=== PATIENT | female | born 1960 | race Caucasian/White ===

== ENCOUNTER 2017-05-20 09:53 | Outpatient (CLI) | payer OTHER | END 2017-05-20 09:54 | disposition home or self-care (01) | LOC: LABBT 09:53 | PROVIDERS: ATTEND Neurological Surgery | DX: Z01.818 Encounter for other preprocedural examination (principal); I67.1 Cerebral aneurysm, nonruptured ==

== ENCOUNTER 2017-05-27 05:54 | Day surgery (SDC) | payer OTHER ==
[2017-05-20 10:16] VITALS: BMI 23.1
[~2017-05-27 05:54] MED LIST: Iopamidol 370 76% 100 ML VIAL ONE
[2017-05-27] MEDS ORDERED: Fentanyl 100 MCG/2 ML VIAL ONE (08:22)
--- NOTE | 2017-05-27 10:41 | OP ---
DATE OF PROCEDURE: 05/27/2017 SURGEON: Adelfo Diop M.D. INSTRUMENTATION INSTRUCTOR: None. INDICATION: Obtained diagnosis. DIAGNOSIS: Left middle cerebral artery trifurcation aneurysm. ANESTHESIA: Local. TECHNIQUE: The patient was brought into the angiogram suite and placed on the table in a supine pos ition. Both groins were prepped and draped in the usual sterile fashion. 1% lidocaine was used to inject the right groin. A 5 Hebrew micropuncture set was used to gain access to the right common fe moral artery. Using the Seldinger technique, the needle was removed and a 5-Hebrew sheath was place d. A 5-Hebrew diagnostic catheter was then passed over a Dragon Inside guidewire which was then placed wi thin the left internal carotid artery. An AP and lateral angiogram was performed. The catheter was then removed. The sheath was removed. Hemostasis was maintained with manual compression. The pro cedure came to an end without complication. IMPRESSION: The patient underwent successful one vessel cerebral angiography of the left internal c arotid artery. The angiogram reveals a left middle cerebral artery bifurcation region aneurysm whic h measures approximately 5 x 5 x 6.9 mm in greatest dimension.
[2017-05-27] MEDS ORDERED: Iopamidol 370 76% 100 ML VIAL ONE (14:05)
== END 2017-05-27 11:25 | disposition home or self-care (01) ==
LOC: CCL 05:54
PROVIDERS: ATTEND Neurological Surgery
PROC: B307ZZZ Plain Radiography of Left Internal Carotid Artery (ICD-10-PCS; principal; 2017-05-27)
DX: I67.1 Cerebral aneurysm, nonruptured (principal); Z79.82 Long term (current) use of aspirin; Z79.899 Other long term (current) drug therapy; Z88.1 Allergy status to other antibiotic agents; Z88.5 Allergy status to narcotic agent; Z90.49 Acquired absence of other specified parts of digestive tract; Z98.890 Other specified postprocedural states
CPT/HCPCS: 36223; J1644; J3010

== ENCOUNTER 2017-12-06 14:56 | Outpatient (CLI) | payer SELFPAY | END 2017-12-06 14:57 | disposition home or self-care (01) | LOC: BICMAMMO 14:56 | PROVIDERS: ATTEND Family Medicine | DX: Z12.31 Encounter for screening mammogram for malignant neoplasm of breast (principal); Z80.3 Family history of malignant neoplasm of breast; R92.1 Mammographic calcification found on diagnostic imaging of breast | CPT/HCPCS: 77063; 77067 ==

== ENCOUNTER 2017-12-19 13:23 | Outpatient (CLI) | payer OTHER | END 2017-12-19 13:24 | disposition home or self-care (01) | LOC: BICMAMMO 13:23 | PROVIDERS: ATTEND Family Medicine | DX: R92.1 Mammographic calcification found on diagnostic imaging of breast (principal); Z80.3 Family history of malignant neoplasm of breast | CPT/HCPCS: G0279 ==

== ENCOUNTER → 2018-01-15 | Day surgery (SDC) | payer OTHER ==
--- NOTE | 2018-01-15 10:33 | MMO ---
POST BIOPSY LEFT BREAST MAMMOGRAM: 01/15/2018 HISTORY: Post stereotactic guided biopsy of left breast microcalcifications and biopsy marker clip placement. COMPARISON: Mammograms obtained at [facility] on 12/06/2017 and 12/19/2017. FINDINGS: The cluster of microcalcifications in the upper outer left breast have significantly decreased in num dilcia secondary to a recent biopsy. A biopsy marker clip is seen at the site of the biopsy in the uppe r outer left breast. IMPRESSION: Post biopsy mammogram demonstrating localization biopsy marker clip at the site of the biopsy in the upper outer left breast. Pathology is currently pending. POS: FLORESITA
--- NOTE | 2018-01-15 10:49 | MMO ---
LEFT BREAST SPECIMEN MAMMOGRAM: Date: 01-15-18 History: Patient is post stereotactic guided biopsy of left breast microcalcifications. FINDINGS: There are multiple punctate calcifications seen throughout the provided specimens obtained of the lef t breast. IMPRESSION: Microcalcifications present within the left breast POS: FLORESITA
--- NOTE | 2018-01-16 07:45 | MMO ---
STEREOTACTIC GUIDED LEFT BREAST BIOPSY BIOPSY MARKER CLIP PLACEMENT LEFT BREAST: DATE: 01/15/18. HISTORY: Right breast microcalcifications. The patient has a family history of breast cancer. Stereotactic-g uided biopsy was recommended. TECHNIQUE: After informed consent was obtained, the patient was placed on the stereotactic-guided breast biopsy table in the supine position. Microcalcifications in the left breast were localized utilizing stereo tactic imaging. The skin and subcutaneous tissues were infiltrated with buffered 1% Lidocaine with epinephrine for lo justin anesthesia. A small skin incision was made. A 10-gauge stereotactic-guided biopsy needle was ad vanced and imaging was again performed. The needle was then once again advanced to the level of the calcifications and imaging confirmed the trough of the needle at the level of the microcalcifications . A total of six 10-gauge core needle biopsy specimens were obtained. Specimen mammogram was performed which demonstrated multiple calcifications within the obtained speci men. As a result, a biopsy marker clip was deployed at the site of biopsy. After biopsy clip was de ployed, stereotactic images were obtained demonstrating the biopsy marker clip at site of previous ca lcifications. The needle was removed, and hemostasis was achieved with direct pressure. A dry sterile dressing was placed. The patient tolerated the procedure well and without immediate complication. IMPRESSION: 1. Technically successful stereotactic-guided biopsy of left breast microcalcifications in the upper outer left breast. 2. Biopsy marker clip was successfully deployed at the site of biopsy. POS: FLORESITA
== END ==
LOC: MAMMO 07:01
PROVIDERS: ATTEND Family Medicine
PROC: 0HBU3ZX Excision of Left Breast, Percutaneous Approach, Diagnostic (ICD-10-PCS; principal; 2018-01-15)
DX: N60.12 Diffuse cystic mastopathy of left breast (principal); Z88.5 Allergy status to narcotic agent; Z88.1 Allergy status to other antibiotic agents
CPT/HCPCS: 19081; 76098; 88305

== ENCOUNTER 2018-11-28 10:10 | Outpatient (CLI) | payer OTHER ==
--- NOTE | 2018-11-28 11:01 | MMO ---
Bilateral MAMMO Bilat Diag [facility]. CLINICAL HISTORY: Patient is 58 years old and is seen for diagnostic exam. The patient has the following family history of breast cancer: sister. The patient has no personal history of cancer. The patient has a history of left Stereotatic Biopsy in December, - benign. VIEWS: The views performed were: bilateral craniocaudal with tomosynthesis; bilateral mediolateral oblique with tomosynthesis; and bilateral mediolateral. FILMS COMPARED: The present examination has been compared to prior imaging studies performed at [facility] on 12/06/2017 and 12/19/2017. MAMMOGRAM FINDINGS: There are scattered fibroglandular densities. There is a stable biopsy clip seen in the left breast. There are no suspicious masses, suspicious calcifications, or new areas of architectural distortion. IMPRESSION: THERE IS NO MAMMOGRAPHIC EVIDENCE OF MALIGNANCY. A ROUTINE FOLLOW-UP MAMMOGRAM IN 1 YEAR IS RECOMMENDED. THE RESULTS OF THIS EXAM WERE SENT TO THE PATIENT. ACR BI-RADS Category 2 - Benign finding MAMMOGRAPHY NOTE: 1. A negative mammogram report should not delay a biopsy if a dominant of clinically suspicious mass is present. 2. Approximately 10% to 15% of breast cancers are not detected by mammography. 3. Adenosis and dense breasts may obscure an underlying neoplasm.
== END 2018-11-28 10:11 | disposition home or self-care (01) ==
LOC: BICMAMMO 10:10
PROVIDERS: ATTEND Family Medicine
DX: N63.20 Unspecified lump in the left breast, unspecified quadrant (principal); Z80.3 Family history of malignant neoplasm of breast
CPT/HCPCS: 77066; G0279

== ENCOUNTER 2021-01-17 07:29 | Outpatient (CLI) | payer OTHER ==
[2021-01-17] MEDS ORDERED: Iopamidol 370 76% 100 ML VIAL ONE (09:26)
== END 2021-01-17 07:30 | disposition home or self-care (01) ==
LOC: BICCT 07:29
PROVIDERS: ATTEND Family Medicine
DX: I67.1 Cerebral aneurysm, nonruptured (principal)
CPT/HCPCS: 70496; Q9967

== ENCOUNTER 2023-01-03 03:26 | Emergency (ER) | payer SELFPAY ==
[2023-01-03] MEDS ORDERED: Dexamethasone 10 MG/ML VIAL ONE (03:43)
[2023-01-03 04:24] LABS: #Basophils 0.1 thou/uL (0.0-0.2); #Eosinphils 0.2 thou/uL (0.0-0.7); #Monocytes 0.7 thou/uL (0.11-0.59); #Neutrophils 6.1 thou/uL (1.40-6.50); %Basophils 0.5 % (0.0-1.0); %Eosinophils 1.8 % (0.0-10.0); %Lymphocytes 31.3 % (21.0-51.0); %Monocytes 6.8 % (0.0-10.0); %Neutrophils 59.3 % (42.0-75.0); Hemoglobin 11.5 g/dL (12.0-16.0); Mean Corpuscular HGB CONC 33.6 g/dL (32.0-36.0); Mean Corpuscular Hemoglobin 31.9 pg (27.0-31.0); Mean Platelet Volume 8.4 fL (7.4-10.4); Platelet Count 311 10x3/uL (130-400); RBC Distribution Width 14.8 % (11.5-14.5); White Blood Cell (WBC) Count 10.2 10x3/uL (4.8-10.8)
[2023-01-03 04:49] LABS: ALT (SGPT) 10 U/L (8-55); AST (SGOT) 13 U/L (5-34); Albumin 3.2 g/dL (3.4-4.8); Alkaline Phosphatase 106 U/L (40-110); Anion Gap 12 mmol/L (10-20); BUN (Urea Nitrogen) 16 mg/dL (9.8-20.1); Bilirubin, Total Less than 0.2 mg/dL (0.2-1.2); CK (CPK) 46 U/L (29-168); Calc. Creatinine Clearance 0 mL/min (70-130); Calcium 8.3 mg/dL (7.8-10.44); Carbon Dioxide 22 mmol/L (23-31); Chloride 109 mmol/L (98-107); Estimated GFR 84; Globulin 2.6 g/dL (2.4-3.5); Glucose 95 mg/dL (80-115); Lipase 19 U/L (8-78); Potassium 3.8 mmol/L (3.5-5.1); Protein, Total 5.8 g/dL (5.8-8.1); Sodium 139 mmol/L (136-145)
[2023-01-03] MEDS ORDERED: Aspirin Chewable 81 MG TAB ONE (06:33)
[2023-01-03 08:37] LABS: Bacteria/HPF 1+ HPF (None Seen); Bilirubin Negative (Negative); Blood, Urine Negative (Negative); CAUTI Indications for Culture Fever or rigors; Clarity Clear (Clear); Glucose, Urine (Dipstick) Normal (Negative); Ketone, Urine Negative (Negative); Leukocyte Negative Leu/uL (Negative); Nitrite Negative (Negative); Protein, Urine (Dipstick) Negative (Neg-Trace); RBC/HPF 0-3 HPF (0-3); Specific Gravity, Urine 1.022 (1.002-1.036); Squamous Epithelial 0-3 HPF (0-3); Urobilinogen Normal mg/dL (Less than 2); WBC/HPF 0-3 HPF (0-3); pH, Urine 6.5 (5.0-9.0)
[2023-01-03 08:38] LABS: Urine Culture Reflex No No
[2023-01-03] MEDS ORDERED: Iopamidol-370 76% 500 ML MDV (1 ML CHARGE) ONE (15:27)
== END 2023-01-03 09:54 | disposition home or self-care (01) ==
LOC: SUATTDRO 03:26 → ERS 03:26
PROVIDERS: ADMIT Internal Medicine; ATTEND Internal Medicine
DX: R07.9 Chest pain, unspecified (principal); I95.89 Other hypotension; R79.1 Abnormal coagulation profile; E78.00 Pure hypercholesterolemia, unspecified; Z87.891 Personal history of nicotine dependence
CPT/HCPCS: 36415; 71045; 71275; 80053; 81001; 82550; 83605; 83690; 83880; 84484; 85025; 85379; 87040; 87086; 93005; 96361; 96374; J1100; Q9967

== ENCOUNTER 2023-07-23 13:08 | Outpatient (CLI) | payer OTHER | END 2023-07-23 13:09 | disposition home or self-care (01) | LOC: BICMAMMO 13:08 | PROVIDERS: ATTEND Family Medicine | DX: Z12.31 Encounter for screening mammogram for malignant neoplasm of breast (principal); Z91.89 Other specified personal risk factors, not elsewhere classified; Z80.3 Family history of malignant neoplasm of breast | CPT/HCPCS: 77063; 77067 ==